=== PATIENT | female | born 1985 | race Caucasian/White ===

== ENCOUNTER 2021-01-23 01:32 | Emergency (ER) | payer OTHER ==
[~2021-01-23] VITALS: Ht 165.1 cm; Wt 71.4 kg
[2021-01-23 01:41] VITALS: BP 112/76
--- NOTE | 2021-01-23 01:50 | PHYS DOC ---
Past History Past Medical History: No Pertinent History Past Surgical History: Appendectomy, Smoking: Cigarettes Alcohol Use: None Drug Use: None General Adult EDM: Chief Complaint: ABDOMINAL PAIN IN HPI: HPI: 35-year-old female presents with report of lower right-sided abdominal discomfor t that has been ongoing since early this morning. Patient does report she is approximately 8 weeks . Patient does have 5 living children at home. Denies any fever or chills. Patient does report some dysuria. Denies vaginal bleeding or discharge. Denies trauma. Patient reports past surgical history of prior appendectomy. Review of Systems: Review of Systems: Constitutional: Denies fever or chills Eyes: Denies redness or eye pain HENT: Denies nasal congestion or sore throat Respiratory: Denies cough or shortness of breath Cardiovascular: Denies chest pain or palpitations GI: Reports right lower abdominal pain; denies nausea or vomiting /VISUALIZATION DEVELOPER: Reports dysuria and ; denies vaginal bleeding or discharge Musculoskeletal: Denies back pain or joint pain Integument: Denies rash or skin lesions Neurologic: Denies headache, focal weakness or sensory changes Complete systems were reviewed and found to be within normal limits, except as documented in this note. Current Medications: Current Meds: Current Medications Medications (Trade) Dose Ordered Sig/Bucky Start Time Stop Time Status Last Admin Dose Admin Acetaminophen (Tylenol) 500 mg 1X ONCE 01/23/21 02:00 01/23/21 02:01 Allergies: Allergies: Allergies Coded Allergies Type Severity Reaction Last Updated Verified doxycycline Allergy Severe Shortness of Air 01/23/21 Yes Physical Exam: PE: Constitutional: Well developed, well nourished, no acute distress, non-toxic a ppearance HENT: Normocephalic, atraumatic Eyes: Conjunctiva normal, no discharge Neck: Normal range of motion, supple Lungs & Thorax: No respiratory distress, equal chest rise and fall Abdomen: Soft, mild suprapubic tenderness; no guarding/rebound tendern ess/distention Skin: Warm, dry, no erythema, no rash Back: No tenderness, no CVA tenderness Extremities: No tenderness, ROM intact, no edema Neurologic: Alert and oriented X 3, no focal deficits noted Psychologic: Affect normal, judgment normal EKG: EKG: [] Radiology/Procedures: Radiology/Procedures: [] Heart Score: C/O Chest Pain: N/A Course & Med Decision Making: Course & Med Decision Making Pertinent Lab studies reviewed. (See chart for details) Patient presents with right lower quadrant abdominal discomfort at approximately 8 weeks gestation. Denies vaginal bleeding or discharge. Denies fever or chills. Denies trauma. Patient does have past surgical history of prior appendectomy. UA...... Pain addressed. Patient stable for discharge with outpatient follow-up with PCP/OB-VISUALIZATION DEVELOPER. Discussed findings and plan with patient, who acknowledges understanding and agreement. Ze Disclaimer: Ze Disclaimer: This electronic medical record was generated, in whole or in part, using a voice recognition dictation system. Departure Departure: Impression: Primary Impression: Abdominal pain during in first trimester Disposition: 01 HOME / SELF CARE / HOMELESS Condition: STABLE Referrals: PCP,UNKNOWN (PCP) Patient Instructions: ABCs of , Abdominal Pain During , [id number] Additional Instructions: Increase fluid hydration. Take over the counter Tylenol as needed for pain or discomfort. Follow closely with your OB-VISUALIZATION DEVELOPER. MARICARMEN TRAN DO Jan 23, 2021 01:50
[2021-01-23] MEDS ORDERED: ACETAMINOPHEN 500 MG TABLET PO ONE (02:00)
[2021-01-23 02:35] LABS: BILIRUBIN,URINE NEG (NEG); CLARITY,URINE CLEAR; COLOR,URINE YELLOW; GLUCOSE,URINE NEG (NEG); NITRITE,URINE NEG (NEG); UROBILINOGEN,URINE 0.2 mg/dL (0.2 mg/dL)
[2021-01-23 02:37] LABS: BACTERIA,URINE 0 /HPF (0-FEW); RBC,URINE OCC /HPF (0-2); WBC,URINE 0 /HPF (0-4)
== END 2021-01-23 02:45 | disposition home or self-care (01) ==
LOC: ER 01:32
DX: O26.891 Other specified pregnancy related conditions, first trimester (principal); R10.31 Right lower quadrant pain; F17.210 Nicotine dependence, cigarettes, uncomplicated; Z3A.08 8 weeks gestation of pregnancy; Z88.1 Allergy status to other antibiotic agents
CPT/HCPCS: 81001; 81025; 99283-25